=== PATIENT | female | born 1985 | race American Indian/Alaskan Native ===

== ENCOUNTER 2018-11-17 12:07 | Emergency (ER) | payer BC, OTHER ==
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
[2018-11-17] MEDS ORDERED: IBUPROFEN PO ONE (14:40)
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
[2018-11-17 18:10] VITALS: BP 125/79
== END 2018-11-17 18:07 | disposition home or self-care (01) ==
LOC: ED 12:07
DX: S13.4XXA Sprain of ligaments of cervical spine, initial encounter (principal); V49.49XA Driver injured in collision with other motor vehicles in traffic accident, initial encounter; Y93.89 Activity, other specified; Y92.410 Unspecified street and highway as the place of occurrence of the external cause; Y99.8 Other external cause status
CPT/HCPCS: 72040; 72072